=== PATIENT | female | born 1950 | race Hispanic/Latino ===

== ENCOUNTER 2017-12-11 12:22 | Emergency (ER) | payer MEDICARE ==
[~2017-12-11] VITALS: Ht 165.1 cm; Wt 70.3 kg
[2017-12-11] MEDS ORDERED: TRAMADOL HCL 50 MG TAB PO ONE (13:00)
[2017-12-11] MEDS ORDERED: ULTRAM 50MG50 MG PO (13:46)
--- NOTE | 2017-12-11 13:47 | Diagnostic Imaging Report ---
Left knee - 3 views HISTORY: Pain. COMPARISON: None available. FINDINGS: Bones: No acute displaced fracture. No expansile lytic or sclerotic lesion. Joints: The joint spaces are well-maintained. No dislocation. Soft tissues: The soft tissues appear unremarkable. Atherosclerotic calcifications. IMPRESSION: No acute radiographic abnormality. Signed by: Dr. Barber Hill M.D. on 12/11/2017 1:43 PM
[2017-12-11 15:03] VITALS: BP 132/82
== END 2017-12-11 15:04 | disposition home or self-care (01) ==
LOC: ER 12:22
DX: M25.562 Pain in left knee (principal); I10 Essential (primary) hypertension; E11.9 Type 2 diabetes mellitus without complications; E03.9 Hypothyroidism, unspecified
CPT/HCPCS: 99283

== ENCOUNTER → 2019-06-28 | Day surgery (SDC) | payer MEDICARE ==
[2019-06-27 11:19] LABS: BASOPHILS % 0.4 % (0.0-1.0); EOSINOPHILS # (AUTO) 0.1 (0.0-0.4); EOSINOPHILS % 1.4 % (0.0-6.0); HEMATOCRIT 40.4 % (34.2-44.1); HEMOGLOBIN 12.8 g/dL (12.0-16.0); LYMPHOCYTES # (AUTO) 1.8 (1.0-3.2); LYMPHOCYTES % 30.9 % (18.0-39.1); MEAN CORPUSCULAR HEMOGLOBIN 30.5 pg (28-32); MEAN CORPUSCULAR HGB CONC 31.7 g/dL (31-35); MEAN CORPUSCULAR VOLUME 96.4 fL (81-99); MONOCYTES # (AUTO) 0.6 (0.2-0.8); MONOCYTES % 9.7 % (4.4-11.3); NEUTROPHILS # (AUTO) 3.2 (2.1-6.9); NEUTROPHILS % 57.1 % (38.7-80.0); PLATELET COUNT 318 x10e3/uL (140-360); RED BLOOD COUNT 4.19 x10e6/uL (3.6-5.1); RED CELL DISTRIBUTION WIDTH 11.9 % (11.7-14.4)
[2019-06-27 11:33] LABS: BLOOD UREA NITROGEN 22 mg/dL (7-26); BUN/CREATININE RATIO 26 (6-25); CALCIUM 9.4 mg/dL (8.4-10.2); CARBON DIOXIDE 26 mmol/L (22-29); CHLORIDE 103 mmol/L (98-107); CREATININE, SERUM 0.86 mg/dL (0.57-1.11); EST GLOMERULAR FILTRATION RATE > 60 ML/MIN (60-); GLUCOSE 169 mg/dL (74-118); SODIUM 138 mmol/L (136-145)
--- NOTE | 2019-06-27 12:04 | Diagnostic Imaging Report ---
Chest, 2 views, 06/27/2019. History: Preop, left knee surgery. Comparison: None available. Findings: The cardiomediastinal silhouette and pulmonary vasculature are within normal limits. There is minimal biapical pleural thickening. The lungs are clear without evidence of consolidation or pleural effusion. Degenerative changes are noted in the thoracic spine. There are no acute osseous or soft tissue abnormalities. Impression: No acute cardiopulmonary abnormality. Signed by: Donis Crespo on 06/27/2019 12:00 PM
[~2019-06-28] MED LIST: ATORVASTATIN CA20 MG PO; BUPIVACAINE 0.5%/EPI 30 ML SDV INJ ONE; CEFAZOLIN SOD 1 GM/NS 50ML 100 ML IV ONE; DEXAMETHASONE SOD PHOS INJ 4 MG/ML VIAL ONE; FENTANYL CITRATE/PF 100MCG/2 ML INJ ONE; FLUOXETINE HCL20 MG PO; LIDOCAINE HCL 2% LOCAL INJ 5 ML SDV VIAL INJ ONE; LOSARTAN PO; MIDAZOLAM HCL 2 MG/2 ML VIAL ONE; ONDANSETRON HCL INJ 2MG/ML 2ML 2 MG/ML VIAL ONE; PHENYLEPHRINE HCL 1% 10 MG/ML VIAL ONE; PIOGLITAZONE HC45 MG PO; PROPOFOL IV EMULSION 10 MG/ML 20 ML VIAL ONE; SEVOFLURANE INHAL SOLN 250 ML PEN BTL ONE; ULTRAM 50MG50 MG PO; XIGDUO XR PO
--- OUTSIDE RECORDS SUMMARY | 2019-06-28 05:41 | XMS REPORT ---
Author [facility] Address Unknown Phone Unavailable Care Team Providers Care Hand Glass Cutter Name Role Phone SRAVAN HILL Unavailable Unavailable Dora MITCHELL Unavailable Unavailable Problems This patient has no known problems. Allergies, Adverse Reactions, Alerts This patient has no known allergies or adverse reactions. Medications This patient has no known medications. Results Test Description Test Time Test Comments Text Results Atomic Results Result Comments CHEST 2 VIEWS 2019-06-27 12:00:00 [place] [address] Patient Name: SHANI OCHOA MR #: [id number] : 1950 Age/Sex: 69/F Req #: [id number] Adm Physician: Ordered by: SRAVAN HILL MD Report #: [id number] Location: OR Room/Bed: Procedure: [id number] DX/CHEST 2 VIEWS Exam Date: 06/27/19 Exam Time: 1144 REPORT STATUS: Signed Chest, 2 views, 06/27/2019. History: Preop, left knee surgery. Comparison: None available. Findings: The cardiomediastinal silhouette and pulmonary vasculature are within normal limits. There is minimal biapical pleural thickening. The lungs are clear without evidence of consolidation or pleural effusion. Degenerative changes are noted in the thoracic spine. There are no acute osseous or soft tissue abnormalities. Impression: No acute cardiopulmonary abnormality. Signed by: Licha Crespo on 06/27/2019 12:00 PM Dictated By: LICHA CRESPO MD 1200 Transcribed By: FINN on 06/27/191199 COPY TO: SRAVAN HILL MD KNEE LEFT THREE VIEWS [facility] [address] [place] [address] Patient Name: SHANI OCHOA MR #: [id number] : 1950 Age/Sex: 67/F Req #: [id number] Adm Physician: Ordered by: LICHA CHUNG NP Report #: [id number] Location: ER Room/Bed: Procedure: [id number] DX/KNEE LEFT THREE VIEWS Exam Date: 12/11/17 Exam Time: 1330 REPORT STATUS: Signed Left knee - 3 views HISTORY: Pain. COMPARISON: None available. FINDINGS: Bones: No acute displaced fracture. No expansile lytic or sclerotic lesion. Joints: The joint spaces are well-maintained. No dislocation. Soft tissues: The soft tissues appear unremarkable. Atherosclerotic calcifications. IMPRESSION: No acute radiographic abnormality. Signed by: Dr. Elmo Crowe M.D. on 12/11/2017 1:43 PM Dictated By: ELMO CROWE MD 1343 Transcribed By: FINN on 12/11/17 1343 COPY TO: LICHA CHUNG NP
[2019-06-28 09:24] VITALS: BP 129/62
--- NOTE | 2019-07-06 11:49 | Operative Report ---
DATE OF PROCEDURE: 06/28/2019 SURGEON: Jj Chavez MD PREOPERATIVE DIAGNOSES: Left knee lateral meniscus tear and left knee degenerative joint disease of the knee. POSTOPERATIVE DIAGNOSES: Left knee lateral meniscus tear and left knee degenerative joint disease of the knee. OPERATIONS AND PROCEDURE PERFORMED: The patient underwent a left knee examination under anesthesia, left knee arthroscopy, left knee partial lateral meniscectomy, left knee chondroplasty of the patella, the trochlea, the medial femoral condyle, the medial tibial plateau, the lateral femoral condyle, the lateral tibial plateau. ER MEDICAL TECHNICIAN: There was no administrative support assistant. ANESTHESIA: General endotracheal intubation anesthesia. IV FLUIDS: Per the anesthesia record BRIEF DESCRIPTION OF THE PATIENT'S OPERATIVE PROCEDURE: Ms. Moreno was taken to the operating room, placed in supine position on the operating table. Following induction of general anesthesia as well as endotracheal intubation, the patient's left lower extremity was examined under anesthesia. She was found to have a mild effusion within the knee joint, but otherwise ligamentously stable knee. The patient's lower extremity was prepped and draped in surgical fashion. A two-port technique used to provide this patient arthroscopic evaluation of the knee joint. Examination of suprapatellar pouch, medial and lateral gutters found no evidence of loose bodies. There was however evidence of an extruded piece of the lateral meniscus in the lateral gutter. The scope was advanced to the medial compartment. Examination of the medial compartment demonstrated chondromalacia of the articulating surfaces. There was no injury to the medial meniscus. A chondroplasty of the medial femoral condyle and medial tibial plateau performed at this time. Scope was then advanced into the intercondylar notch and the anterior cruciate ligament was identified and found to be intact. Scope was advanced to the lateral compartment. There was a torn and macerated lateral meniscus. The piece of meniscus that was extruded in the lateral compartment was drawn into the lateral compartment with a probe. A combination of biting forceps and a motorized shaver were used to resect the torn portion of meniscus. Chondroplasties of the lateral femoral condyle and lateral tibial plateau were performed at this time. The scope was then placed in suprapatellar pouch. Chondroplasties of the patella and trochlear were performed. The knee was deflated with sterile normal saline. Each of the portal sites were closed using 4-0 nylon suture. The portal sites as well as knee itself were injected with 0.5% Marcaine with epinephrine. Sterile dressings were applied. The patient was awakened and taken to postanesthesia care unit in stable condition. MD WILNER Solomon/MADELEINE /[id number]
== END | disposition home or self-care (01) ==
LOC: OR 05:32
PROVIDERS: ATTEND Specialist
DX: S83.282A Other tear of lateral meniscus, current injury, left knee, initial encounter (principal); Z01.810 Encounter for preprocedural cardiovascular examination; Z01.812 Encounter for preprocedural laboratory examination; Z01.811 Encounter for preprocedural respiratory examination; E78.5 Hyperlipidemia, unspecified; E03.9 Hypothyroidism, unspecified; E11.9 Type 2 diabetes mellitus without complications; K21.9 Gastro-esophageal reflux disease without esophagitis; F32.9 Major depressive disorder, single episode, unspecified; F41.9 Anxiety disorder, unspecified; R05 Cough; I10 Essential (primary) hypertension; R06.02 Shortness of breath; M17.12 Unilateral primary osteoarthritis, left knee; M25.462 Effusion, left knee
CPT/HCPCS: 29881; 36415; 71046; 80048; 85025; 93005; J0690; J1100; J2001; J2250; J2370; J2405; J2704; J3010

== ENCOUNTER 2024-02-17 05:20 | Observation (INO) | payer MEDICARE ==
[2024-02-11 09:43] LABS: BASOPHILS % 0.4 % (0.0-1.0); EOSINOPHILS # (AUTO) 0.2 (0.0-0.4); EOSINOPHILS % 2.8 % (0.0-6.0); HEMATOCRIT 31.2 % (34.2-44.1); HEMOGLOBIN 10.1 g/dL (12.0-16.0); LYMPHOCYTES # (AUTO) 2.2 (1.0-3.2); LYMPHOCYTES % 40.8 % (18.0-39.1); MEAN CORPUSCULAR HEMOGLOBIN 31.3 pg (28-32); MEAN CORPUSCULAR HGB CONC 32.4 g/dL (31-35); MEAN CORPUSCULAR VOLUME 96.6 fL (81-99); MONOCYTES # (AUTO) 0.5 (0.2-0.8); MONOCYTES % 8.5 % (4.4-11.3); NEUTROPHILS # (AUTO) 2.5 (2.1-6.9); NEUTROPHILS % 47.1 % (38.7-80.0); PLATELET COUNT 270 x10e3/uL (140-360); RED BLOOD COUNT 3.23 x10e6/uL (3.6-5.1); RED CELL DISTRIBUTION WIDTH 12.8 % (11.7-14.4); WHITE BLOOD COUNT 5.27 x10e3/uL (4.8-10.8)
[2024-02-11 10:08] LABS: PARTIAL THROMBOPLASTIN TIME 25.4 seconds (23.8-35.5)
[2024-02-11 10:39] LABS: INR 0.9; PROTHROMBIN TIME 12.3 seconds (11.9-14.5)
[2024-02-11 11:44] LABS: ANION GAP 13.4 mmol/L (8-16); CALCIUM 8.9 mg/dL (8.4-10.2); CREATININE, SERUM 0.85 mg/dL (0.57-1.11); POTASSIUM 4.4 mmol/L (3.5-5.1)
[~2024-02-17] VITALS: Ht 162.6 cm; Wt 67.1 kg
[~2024-02-17 05:20] MED LIST changes: -BUPIVACAINE 0.5%/EPI 30 ML SDV INJ ONE; -CEFAZOLIN SOD 1 GM/NS 50ML 100 ML IV ONE; -DEXAMETHASONE SOD PHOS INJ 4 MG/ML VIAL ONE; -FENTANYL CITRATE/PF 100MCG/2 ML INJ ONE; +GABAPENTIN300 MG PO; -LIDOCAINE HCL 2% LOCAL INJ 5 ML SDV VIAL INJ ONE; +METFORMIN HCL500 MG PO; -MIDAZOLAM HCL 2 MG/2 ML VIAL ONE; -ONDANSETRON HCL INJ 2MG/ML 2ML 2 MG/ML VIAL ONE; -PHENYLEPHRINE HCL 1% 10 MG/ML VIAL ONE; -PROPOFOL IV EMULSION 10 MG/ML 20 ML VIAL ONE; -SEVOFLURANE INHAL SOLN 250 ML PEN BTL ONE
[2024-02-17] MEDS: LACTATED RINGER'S 1,000 ML ONE (05:58)
[2024-02-17] MEDS: CEFAZOLIN SODIUM 2 GM ONE (05:58)
[2024-02-17] MEDS ORDERED: THROMBIN FOR SOLN 5,000 UNIT VIAL ONE (06:51)
[2024-02-17] MEDS ORDERED: LIDOCAINE 1% W/EPINEPHRINE 20 ML VIAL ONE (06:51)
[2024-02-17] MEDS ORDERED: Vancomycin IV 1 GM VIAL ONE (06:51)
[2024-02-17] MEDS ORDERED: HYDROCODON-ACE1 EA12 PO (09:56)
[2024-02-17] MEDS ORDERED: PROMETHAZINE HCL (IM) 25 MG/ML VIAL IM PRN (10:00)
[2024-02-17] MEDS ORDERED: MORPHINE SULFATE 5 MG/ML VIAL IM PRN (10:00)
[2024-02-17] MEDS: LACTATED RINGER'S 1,000 ML IV SCH (10:00)
[2024-02-17] MEDS ORDERED: ACETAMINOPHEN 325 MG TAB PO PRN (10:00)
[2024-02-17] MEDS ORDERED: MAGNESIUM/ALUMINUM/SIMETHICONE 30 ML UDC PO PRN (10:00)
[2024-02-17] MEDS ORDERED: ZOLPIDEM TARTRATE 5 MG TAB PO PRN (10:00)
[2024-02-17] MEDS: FENTANYL CITRATE/PF 100MCG/2 ML INJ ONE (10:10)
[2024-02-17] MEDS: CARISOPRODOL 350 MG TAB PO PRN (10:45)
[2024-02-17] MEDS: OXYCODONE/ACETAMINOPHEN 5-325 1 EACH TABLET PO PRN (10:45)
[2024-02-17 13:08] VITALS: BP 156/65; PULSE 77; RESP 17; TEMP 97.6; O2SAT 96
[2024-02-17 13:16] VITALS: BP 156/65; RESP 17; TEMP 97.6; O2SAT 96
[2024-02-17] MEDS: HYDROCODONE/APAP 7.5MG-325MG 1 EA TAB PO PRN (13:21)
[2024-02-17] MEDS ORDERED: FENTANYL CITRATE/PF 100MCG/2 ML INJ ONE (14:41)
[2024-02-17 15:37] VITALS: BP 122/56; PULSE 76; RESP 18; TEMP 97.8; O2SAT 99
[2024-02-17] MEDS: GABAPENTIN 300 MG CAP PO SCH (16:41)
[2024-02-17] MEDS: METFORMIN HCL 850 MG TAB PO SCH (16:41)
[2024-02-17] MEDS ORDERED: METFORMIN HCL 500 MG TAB PO SCH (17:00)
[2024-02-17] MEDS ORDERED: DEXMEDETOMIDINE HCL 200 MCG/2 ML VIAL ONE (17:11)
[2024-02-17] MEDS ORDERED: PROPOFOL IV EMULSION 10 MG/ML 20 ML VIAL ONE (17:11)
[2024-02-17] MEDS ORDERED: FAMOTIDINE 20 MG/2 ML VIAL IV ONE (17:11)
[2024-02-17] MEDS ORDERED: PHENYLEPHRINE HCL 1% 10 MG/ML VIAL ONE (17:11)
[2024-02-17] MEDS ORDERED: LIDOCAINE HCL 2% LOCAL INJ 5 ML SDV VIAL INJ ONE (17:11)
[2024-02-17] MEDS ORDERED: ROCURONIUM BROMIDE 10 MG/ML 5ML VIAL IV ONE (17:11)
[2024-02-17] MEDS ORDERED: SUGAMMADEX SODIUM 200 MG/2 ML VIAL IV ONE (17:11)
[2024-02-17] MEDS ORDERED: SEVOFLURANE INHAL SOLN 250 ML PEN BTL ONE (17:11)
[2024-02-17] MEDS ORDERED: ACETAMINOPHEN 1000 MG/100 ML IV ONE (17:11)
[2024-02-17] MEDS ORDERED: DEXAMETHASONE SOD PHOS 10 MG/1 ML VIAL ONE (17:11)
[2024-02-17] MEDS ORDERED: ONDANSETRON HCL INJ 2MG/ML 2ML 2 MG/ML VIAL ONE (17:11)
[2024-02-17 20:00] VITALS: BP 106/54; PULSE 83; RESP 18; TEMP 98.4; O2SAT 98
[2024-02-17] MEDS: ATORVASTATIN 40 MG TAB PO SCH (20:30)
[2024-02-17] MEDS ORDERED: ATORVASTATIN 20 MG TAB PO SCH (21:00)
[2024-02-17 23:19] VITALS: BP 106/54; PULSE 83; RESP 18; TEMP 98.4; O2SAT 98
[2024-02-18] VITALS: BP 107/55; PULSE 79; RESP 18; TEMP 98.2; O2SAT 100
[2024-02-18 00:07] VITALS: BP 106/54; PULSE 83; RESP 18; TEMP 98.4; O2SAT 98
[2024-02-18 04:00] VITALS: BP 114/57; PULSE 78; RESP 18; TEMP 98.5; O2SAT 98
[2024-02-18] MEDS: OMEPRAZOLE 20 MG CAP PO SCH (07:49)
[2024-02-18] MEDS: FLUOXETINE HCL 20 MG CAP PO SCH (07:49)
[2024-02-18] MEDS: PIOGLITAZONE HCL 15 MG TAB PO SCH (07:49)
[2024-02-18] MEDS: LOSARTAN POTASSIUM 25 MG TAB PO SCH (07:50)
[2024-02-18] MEDS: HYDROMORPHONE 2MG/ML IV PRN (07:50)
[2024-02-18] MEDS: ONDANSETRON HCL INJ 2MG/ML 2ML 2 MG/ML VIAL IV PRN (07:51)
[2024-02-18] MEDS: XIGDUO PO SCH (07:59)
[2024-02-18 08:44] VITALS: BP 122/61; PULSE 72; RESP 18; TEMP 98.5; O2SAT 99
[2024-02-18 09:00] VITALS: BP 122/61; PULSE 72; RESP 18; TEMP 98.5; O2SAT 99
[2024-02-18] MEDS ORDERED: PNEUMOCOCCAL VACCINE POLYVALENT 23 MCG/0.5 ML VIAL IM SCH (09:00)
[2024-02-18] MEDS ORDERED: LOSARTAN 50 MG PO SCH (09:00)
[2024-02-18 11:37] VITALS: BP 107/56; PULSE 84; RESP 18; TEMP 98.4; O2SAT 98
== END 2024-02-18 12:15 | disposition home or self-care (01) ==
LOC: OR 05:20 → PACU V 09:54 → MED/SURG 10:56
PROVIDERS: ADMIT Neurological Surgery; ATTEND Neurological Surgery
DX: M48.062 Spinal stenosis, lumbar region with neurogenic claudication (principal); M51.16 Intervertebral disc disorders with radiculopathy, lumbar region; G96.09 Other spinal cerebrospinal fluid leak; I10 Essential (primary) hypertension; M81.0 Age-related osteoporosis without current pathological fracture; E11.9 Type 2 diabetes mellitus without complications; Z79.84 Long term (current) use of oral hypoglycemic drugs; F41.9 Anxiety disorder, unspecified; E78.5 Hyperlipidemia, unspecified; Z01.810 Encounter for preprocedural cardiovascular examination; Z01.812 Encounter for preprocedural laboratory examination; Z01.818 Encounter for other preprocedural examination; Z79.899 Other long term (current) drug therapy
CPT/HCPCS: 36415 ×3; 63047; 63048; 71046; 72020; 80048; 82948 ×2; 85025; 85610; 85730; 86850; 86900; 86920; 88304; 88311; 93005; 99252; G0378 ×2; J0131; J0690 ×2; J1100; J1170; J2001; J2371; J2405 ×2; J2704; J3010; J3370; J7121

== ENCOUNTER 2024-04-18 14:54 | Outpatient (RCR) | payer MEDICARE ==
[~2024-04-18 14:54] MED LIST changes: +HYDROCODON-ACE1 EA12 PO
[2024-05-08] MEDS ORDERED: GABAPENTIN300 MG PO (13:36)
[2024-05-08] MEDS ORDERED: IBUPROFEN200 MG PO (13:36)
[2024-05-08] MEDS ORDERED: HYDROCODON-ACE1 EA12 PO (13:36)
== END 2024-05-07 ==
LOC: PT 14:54
PROVIDERS: ATTEND Neurological Surgery
DX: M48.062 Spinal stenosis, lumbar region with neurogenic claudication (principal); M54.50 Low back pain, unspecified; M62.81 Muscle weakness (generalized)

== ENCOUNTER 2024-05-08 12:45 | Emergency (ER) | payer MEDICARE ==
[~2024-05-08] VITALS: Ht 165.1 cm; Wt 65.8 kg
[2024-05-08] MEDS ORDERED: LACTATED RINGER'S 1,000 ML IV ONE (13:15)
[2024-05-08] MEDS ORDERED: KETOROLAC TROMETHAMINE 30 MG/ML VIAL ONE (13:31)
[2024-05-08] MEDS: KETOROLAC TROMETHAMINE 30 MG/ML VIAL IV ONE (13:32)
[2024-05-08] MEDS: ACETAMINOPHEN 325 MG TAB PO ONE (13:33)
[2024-05-08] MEDS ORDERED: IBUPROFEN200 MG PO (13:36)
[2024-05-08] MEDS ORDERED: GABAPENTIN300 MG PO (13:36)
[2024-05-08] MEDS ORDERED: HYDROCODON-ACE1 EA12 PO (13:36)
[2024-05-08] MEDS: SODIUM CHLORIDE 0.9% 1000ML 1,000 ML IV STA (13:37)
[2024-05-08 15:38] VITALS: PULSE 74; RESP 18; TEMP 98.1; O2SAT 100
== END 2024-05-08 15:40 | disposition home or self-care (01) ==
LOC: FSED 12:48
DX: M54.31 Sciatica, right side (principal); G57.91 Unspecified mononeuropathy of right lower limb; M51.26 Other intervertebral disc displacement, lumbar region; I10 Essential (primary) hypertension; E11.9 Type 2 diabetes mellitus without complications; E78.00 Pure hypercholesterolemia, unspecified; Z79.84 Long term (current) use of oral hypoglycemic drugs; Z79.899 Other long term (current) drug therapy; Z79.1 Long term (current) use of non-steroidal anti-inflammatories (NSAID)
CPT/HCPCS: 72131; 80053; 81003; 85025; 99284; J1885; J7030